=== PATIENT | male | born 1945 | race Caucasian/White ===

== ENCOUNTER 2018-02-12 08:37 | Inpatient (IN) | payer OTHER ==
[2018-02-12 09:45] LABS: ADD MAN DIFF? NO
[2018-02-12 09:52] LABS: BASOPHILS % 0.3 % (0.0-2.0); EOSINOPHILS # 0.1 10^3/ul (0.0-0.5); EOSINOPHILS % 1.7 % (0.0-7.0); HEMATOCRIT 29.6 % (42.0-52.0); HEMOGLOBIN 9.7 g/dl (14.0-18.0); LYMPHOCYTES # 1.6 10^3/ul (0.8-2.9); LYMPHOCYTES % 25.3 % (15.0-51.0); MEAN CORPUSCULAR HGB CONC 32.8 g/dl (32.0-37.0); MEAN CORPUSCULAR VOLUME 97.7 fl (82.0-101.0); MEAN PLATELET VOLUME 9.9 fl (7.4-10.4); MONOCYTE # 0.6 10^3/ul (0.3-0.9); MONOCYTES % 8.9 % (0.0-11.0); NEUTROPHIL # 4.1 10^3/ul (1.6-7.5); NEUTROPHILS % 63.6 % (39.0-77.0); PLATELET COUNT 395 10^3/UL (140-415); RED BLOOD COUNT 3.03 10^6/ul (4.70-6.10); RED CELL DISTRIBUTION WIDTH 12.5 % (11.5-14.5)
[2018-02-12 09:52] LABS: WHITE BLOOD COUNT 6.4 10^3/ul (4.8-10.8)
[2018-02-12] MEDS: PIPER-TAZO 3.375 GM IV (PMX) 100 ML IVPB ×2 (10:10→23:02)
[2018-02-12] MEDS: SODIUM CHLORIDE 0.9% 1L BAG IV* (10:11)
[2018-02-12 10:14] LABS: ANION GAP 9 (5-13); BLOOD UREA NITROGEN 25 mg/dl (7-20); C-REACTIVE PROTEIN 8.1 mg/dl (0.0-0.9); CALCIUM 8.7 mg/dl (8.4-10.2); CARBON DIOXIDE 25 mmol/L (21-31); CHLORIDE 106 mmol/L (97-110); CREATININE 1.89 mg/dl (0.61-1.24); Estimated GFR 35 mL/min (>60); GLUCOSE 159 mg/dl (70-220); POTASSIUM 4.2 mmol/L (3.5-5.1); SODIUM 140 mmol/L (135-144)
[2018-02-12] MEDS ORDERED: DOCUSATE SODIUM 100 MG CAP PO (10:30)
[2018-02-12] MEDS ORDERED: ONDANSETRON 4 MG INJ IV ×2 (10:30)
[2018-02-12] MEDS ORDERED: morphine 2 MG INJ IV (10:30)
[2018-02-12] MEDS ORDERED: VANCOMYCIN IV PER PHARMACY XX (10:30)
[2018-02-12] MEDS ORDERED: NACL 0.9% 3 ML SYG IV (10:30)
[2018-02-12] MEDS ORDERED: ACETAMINOPHEN 325 MG TAB PO ×2 (10:30)
[2018-02-12] MEDS ORDERED: HYDROCODONE/APAP (5/325) TAB PO (10:30)
[2018-02-12 10:55] LABS: INR 1.05; PROTIME 13.8 Sec (11.9-14.9); PT RATIO 1.1
[2018-02-12 10:56] LABS: PARTIAL THROMBOPLASTIN TIME 36.7 Sec (23.0-35.0)
[2018-02-12] MEDS: VANCOMYCIN 1 GM (PMX) 250 ML IVPB (10:58)
[2018-02-12] MEDS: INSULIN ASPART [NOVOLOG] 3 ML PEN SC ×3 (12:00→20:12)
[2018-02-12] MEDS: LOSARTAN 50 MG TAB GTB (12:05)
[2018-02-12] MEDS: FAMOTIDINE 20 MG TAB PO (12:05)
[2018-02-12] MEDS: SOD CHLORIDE 0.9% 1,000 ML IV ×2 (12:06→23:05)
[2018-02-12] MEDS: VANCOMYCIN 500 MG (PMX) 100 ML IVPB (14:16)
[2018-02-12] MEDS ORDERED: HEPARIN 5,000 UNIT/0.5 ML VIAL ×2 (14:18→22:53)
[2018-02-12] MEDS: HEPARIN 5,000 UNIT/1 ML VIAL SC ×2 (14:19→23:04)
[2018-02-12 14:27] LABS: LACTIC ACID 0.8 mmol/L (0.5-2.0)
[2018-02-12] MEDS ORDERED: morphine LIQ (10 MG/5 ML) CUP PO (18:00)
[2018-02-13] MEDS: ACCU-CHEK XX (02:00)
[2018-02-13] MEDS: HEPARIN 5,000 UNIT/1 ML VIAL SC ×3 (05:24→22:00)
[2018-02-13] MEDS: PIPER-TAZO 3.375 GM IV (PMX) 100 ML IVPB ×3 (05:24→21:54)
[2018-02-13 07:26] LABS: ADD MAN DIFF? NO
[2018-02-13 07:31] LABS: BASOPHILS % 0.2 % (0.0-2.0); EOSINOPHILS # 0.1 10^3/ul (0.0-0.5); HEMOGLOBIN 8.8 g/dl (14.0-18.0); LYMPHOCYTES # 1.2 10^3/ul (0.8-2.9); LYMPHOCYTES % 25.3 % (15.0-51.0); MEAN CORPUSCULAR HEMOGLOBIN 31.5 pg (29.0-33.0); MEAN CORPUSCULAR HGB CONC 32.6 g/dl (32.0-37.0); MEAN CORPUSCULAR VOLUME 96.8 fl (82.0-101.0); MONOCYTE # 0.5 10^3/ul (0.3-0.9); MONOCYTES % 9.9 % (0.0-11.0); NEUTROPHIL # 2.9 10^3/ul (1.6-7.5); NEUTROPHILS % 61.2 % (39.0-77.0); PLATELET COUNT 355 10^3/UL (140-415); RED BLOOD COUNT 2.79 10^6/ul (4.70-6.10); RED CELL DISTRIBUTION WIDTH 12.5 % (11.5-14.5)
[2018-02-13 07:31] LABS: WHITE BLOOD COUNT 4.7 10^3/ul (4.8-10.8)
[2018-02-13 07:53] LABS: HEMOGLOBIN A1C 6.2 % (0-5.9)
[2018-02-13] MEDS ORDERED: INSULIN ASPART [NOVOLOG] 3 ML PEN SC (08:00)
[2018-02-13 08:07] LABS: ALANINE AMINOTRANSFERASE 19 IU/L (13-69); ALBUMIN 2.6 g/dl (3.3-4.9); ALBUMIN/GLOBULIN RATIO 0.78; ALKALINE PHOSPHATASE 111 IU/L (42-121); ANION GAP 4 (5-13); ASPARTATE AMINO TRANSFERASE 16 IU/L (15-46); BILIRUBIN,INDIRECT 0.3 mg/dl (0-1.1); BILIRUBIN,TOTAL 0.3 mg/dl (0.2-1.3); BLOOD UREA NITROGEN 21 mg/dl (7-20); CALCIUM 8.8 mg/dl (8.4-10.2); CARBON DIOXIDE 27 mmol/L (21-31); CHLORIDE 109 mmol/L (97-110); CHOL/HDL RATIO 5.7 RATIO; CHOLESTEROL 127 mg/dl (100-200); CREATININE 1.62 mg/dl (0.61-1.24); Estimated GFR 42 mL/min (>60); GLUCOSE 130 mg/dl (70-220); HDL CHOLESTEROL 22 mg/dl (31-75); LDL CHOLESTEROL,CALCULATED 72 mg/dl; MAGNESIUM 1.6 mg/dl (1.7-2.5); PHOSPHORUS 3.3 mg/dl (2.5-4.9); POTASSIUM 5.3 mmol/L (3.5-5.1); SODIUM 140 mmol/L (135-144); TOTAL PROTEIN 5.9 g/dl (6.1-8.1); TRIGLYCERIDES 165 mg/dl (0-149)
[2018-02-13 08:23] LABS: T3 UPTAKE 42.3 % (23.5-40.5)
[2018-02-13] MEDS: Insulin NOVOLOG SS MODERATE Algorithm(NPO/TPN/ENTERAL FEEDS) SC ×3 (09:00→17:00)
[2018-02-13 09:28] LABS: FREE THYROXINE INDEX (Calc) 1.65 ug/ml (0.65-3.89); T4 (THYROXINE) 3.9 ug/dl (5.5-11.0)
[2018-02-13] MEDS: FAMOTIDINE 20 MG TAB PO (09:47)
[2018-02-13] MEDS: NA BICARBONATE 8.4% 50 ML SYG IV (09:47)
[2018-02-13] MEDS: LOSARTAN 50 MG TAB GTB (09:49)
[2018-02-13 10:04] LABS: IRON 42 ug/dl (35-150)
[2018-02-13 10:14] LABS: % IRON SATURATION 19 % SAT (22-52); TOTAL IRON BINDING CAPACITY 222 ug/dl (241-421)
[2018-02-13 11:12] LABS: FOLATE 13.6 ng/ml (2.8-20.0)
[2018-02-13] MEDS: CALCIUM GLUCONATE 10% 1 GM in DEXTROSE 5% 100 ML IVPB (11:40)
[2018-02-13] MEDS: VANCOMYCIN 750 MG in SOD CHLORIDE 0.9% 150 ML IVPB (11:41)
[2018-02-13] MEDS: INSULIN ASPART [NOVOLOG] 3 ML PEN SC (21:00)
[2018-02-13] MEDS ORDERED: GLUCAGON 1 MG INJ IM (21:30)
[2018-02-13] MEDS ORDERED: GLUCOSE GEL 15 GRAM TUBE BUCCAL (21:30)
[2018-02-13] MEDS ORDERED: GLUCOSE GEL 15 GRAM TUBE PO ×2 (21:30)
[2018-02-13] MEDS ORDERED: DEXTROSE 50% 50 ML SYRINGE IV ×2 (21:30)
[2018-02-13] MEDS ORDERED: HEPARIN 5,000 UNIT/0.5 ML VIAL (21:48)
[2018-02-13] MEDS: SOD FERRIC GLUC COMPLX 125 MG in SOD CHLORIDE 0.9% 100 ML IVPB (21:55)
[2018-02-14] MEDS: ACCU-CHEK XX (01:14)
[2018-02-14 05:28] LABS: ADD MAN DIFF? NO
[2018-02-14 05:35] LABS: BASOPHILS % 0.2 % (0.0-2.0); EOSINOPHILS % 0.6 % (0.0-7.0); LYMPHOCYTES # 1.1 10^3/ul (0.8-2.9); LYMPHOCYTES % 22.2 % (15.0-51.0); MEAN CORPUSCULAR HEMOGLOBIN 31.5 pg (29.0-33.0); MEAN CORPUSCULAR HGB CONC 32.1 g/dl (32.0-37.0); MEAN CORPUSCULAR VOLUME 97.9 fl (82.0-101.0); MEAN PLATELET VOLUME 9.8 fl (7.4-10.4); MONOCYTE # 0.5 10^3/ul (0.3-0.9); MONOCYTES % 9.4 % (0.0-11.0); NEUTROPHIL # 3.2 10^3/ul (1.6-7.5); NEUTROPHILS % 67.4 % (39.0-77.0); PLATELET COUNT 404 10^3/UL (140-415); RED BLOOD COUNT 2.86 10^6/ul (4.70-6.10); RED CELL DISTRIBUTION WIDTH 12.7 % (11.5-14.5)
[2018-02-14 05:35] LABS: WHITE BLOOD COUNT 4.8 10^3/ul (4.8-10.8)
[2018-02-14] MEDS ORDERED: HEPARIN 5,000 UNIT/0.5 ML VIAL ×3 (05:46→20:11)
[2018-02-14] MEDS: HEPARIN 5,000 UNIT/1 ML VIAL SC ×3 (05:52→21:20)
[2018-02-14] MEDS: PIPER-TAZO 3.375 GM IV (PMX) 100 ML IVPB ×3 (05:53→21:17)
[2018-02-14 06:15] LABS: ALANINE AMINOTRANSFERASE 10 IU/L (13-69); ALBUMIN 2.8 g/dl (3.3-4.9); ALBUMIN/GLOBULIN RATIO 0.75; ALKALINE PHOSPHATASE 88 IU/L (42-121); ANION GAP 10 (5-13); ASPARTATE AMINO TRANSFERASE 17 IU/L (15-46); BILIRUBIN,INDIRECT 0.3 mg/dl (0-1.1); BILIRUBIN,TOTAL 0.3 mg/dl (0.2-1.3); BLOOD UREA NITROGEN 24 mg/dl (7-20); CALCIUM 8.6 mg/dl (8.4-10.2); CARBON DIOXIDE 26 mmol/L (21-31); CHLORIDE 107 mmol/L (97-110); CREATININE 2.18 mg/dl (0.61-1.24); Estimated GFR 30 mL/min (>60); GLUCOSE 116 mg/dl (70-220); POTASSIUM 4.7 mmol/L (3.5-5.1); SODIUM 143 mmol/L (135-144); TOTAL PROTEIN 6.5 g/dl (6.1-8.1)
[2018-02-14 06:24] LABS: MAGNESIUM 1.5 mg/dl (1.7-2.5)
[2018-02-14 06:24] LABS: PHOSPHORUS 3.6 mg/dl (2.5-4.9)
[2018-02-14] MEDS: INSULIN ASPART [NOVOLOG] 3 ML PEN SC ×4 (08:07→21:00)
[2018-02-14] MEDS: LOSARTAN 50 MG TAB GTB (09:00)
[2018-02-14] MEDS: SODIUM HYPOCHLORITE (1/40) 1 APPLIC BTL IRR (09:03)
[2018-02-14] MEDS: FAMOTIDINE 20 MG TAB PO (09:03)
[2018-02-14 10:34] LABS: VANCOMYCIN,TROUGH 11.8 ug/ml (10.0-20.0)
[2018-02-14] MEDS: VANCOMYCIN 750 MG in SOD CHLORIDE 0.9% 150 ML IVPB (11:46)
[2018-02-14] MEDS: SOD FERRIC GLUC COMPLX 125 MG in SOD CHLORIDE 0.9% 100 ML IVPB (16:08)
[2018-02-14] MEDS: SOD CHLORIDE 0.9% 1,000 ML IV (21:30)
[2018-02-15] MEDS: ACCU-CHEK XX (01:03)
[2018-02-15] MEDS ORDERED: HEPARIN 5,000 UNIT/0.5 ML VIAL ×3 (04:32→20:51)
[2018-02-15] MEDS: PIPER-TAZO 3.375 GM IV (PMX) 100 ML IVPB ×3 (05:34→21:49)
[2018-02-15] MEDS: HEPARIN 5,000 UNIT/1 ML VIAL SC ×3 (05:38→21:53)
[2018-02-15 05:51] LABS: PHOSPHORUS 3.5 mg/dl (2.5-4.9)
[2018-02-15 05:51] LABS: MAGNESIUM 1.7 mg/dl (1.7-2.5)
[2018-02-15 05:53] LABS: ALANINE AMINOTRANSFERASE 16 IU/L (13-69); ALBUMIN 2.8 g/dl (3.3-4.9); ALKALINE PHOSPHATASE 72 IU/L (42-121); ANION GAP 7 (5-13); ASPARTATE AMINO TRANSFERASE 17 IU/L (15-46); BILIRUBIN,INDIRECT 0.3 mg/dl (0-1.1); BILIRUBIN,TOTAL 0.3 mg/dl (0.2-1.3); BLOOD UREA NITROGEN 24 mg/dl (7-20); CALCIUM 8.6 mg/dl (8.4-10.2); CARBON DIOXIDE 27 mmol/L (21-31); CHLORIDE 106 mmol/L (97-110); CREATININE 2.22 mg/dl (0.61-1.24); Estimated GFR 29 mL/min (>60); GLUCOSE 90 mg/dl (70-220); POTASSIUM 4.1 mmol/L (3.5-5.1); SODIUM 140 mmol/L (135-144); TOTAL PROTEIN 6.3 g/dl (6.1-8.1)
[2018-02-15] MEDS: SOD CHLORIDE 0.9% 1,000 ML IV ×3 (07:30→16:45)
[2018-02-15] MEDS: INSULIN ASPART [NOVOLOG] 3 ML PEN SC ×4 (07:55→20:55)
[2018-02-15] MEDS: LOSARTAN 50 MG TAB GTB (08:00)
[2018-02-15] MEDS: FAMOTIDINE 20 MG TAB PO (08:00)
[2018-02-15] MEDS: MAGNESIUM OXIDE 400 MG TAB PO ×2 (08:00→20:54)
[2018-02-15] MEDS: VANCOMYCIN 750 MG in SOD CHLORIDE 0.9% 150 ML IVPB (11:05)
[2018-02-15] MEDS: SODIUM HYPOCHLORITE (1/40) 1 APPLIC BTL IRR ×2 (13:10)
[2018-02-15] MEDS: SOD FERRIC GLUC COMPLX 125 MG in SOD CHLORIDE 0.9% 100 ML IVPB (17:09)
[2018-02-16] MEDS: INSULIN ASPART [NOVOLOG] 3 ML PEN SC ×6 (01:00→21:00)
[2018-02-16] MEDS: ACCU-CHEK XX (02:00)
[2018-02-16] MEDS: SOD CHLORIDE 0.9% 1,000 ML IV ×3 (03:10→16:04)
[2018-02-16 05:20] LABS: WHITE BLOOD COUNT 3.9 10^3/ul (4.8-10.8)
[2018-02-16 05:20] LABS: ADD MAN DIFF? NO; BASOPHILS % 0.5 % (0.0-2.0); EOSINOPHILS # 0.2 10^3/ul (0.0-0.5); EOSINOPHILS % 5.6 % (0.0-7.0); HEMATOCRIT 25.9 % (42.0-52.0); HEMOGLOBIN 8.6 g/dl (14.0-18.0); LYMPHOCYTES # 1.2 10^3/ul (0.8-2.9); LYMPHOCYTES % 30.8 % (15.0-51.0); MEAN CORPUSCULAR HGB CONC 33.2 g/dl (32.0-37.0); MEAN CORPUSCULAR VOLUME 96.3 fl (82.0-101.0); MEAN PLATELET VOLUME 9.5 fl (7.4-10.4); MONOCYTE # 0.5 10^3/ul (0.3-0.9); MONOCYTES % 11.7 % (0.0-11.0); NEUTROPHILS % 51.1 % (39.0-77.0); PLATELET COUNT 302 10^3/UL (140-415); RED BLOOD COUNT 2.69 10^6/ul (4.70-6.10); RED CELL DISTRIBUTION WIDTH 12.8 % (11.5-14.5)
[2018-02-16] MEDS: HEPARIN 5,000 UNIT/1 ML VIAL SC ×3 (05:31→22:09)
[2018-02-16] MEDS: PIPER-TAZO 3.375 GM IV (PMX) 100 ML IVPB ×3 (05:46→22:08)
[2018-02-16 06:03] LABS: ALANINE AMINOTRANSFERASE 9 IU/L (13-69); ALBUMIN 2.7 g/dl (3.3-4.9); ALBUMIN/GLOBULIN RATIO 0.79; ALKALINE PHOSPHATASE 78 IU/L (42-121); ANION GAP 7 (5-13); ASPARTATE AMINO TRANSFERASE 22 IU/L (15-46); BILIRUBIN,INDIRECT 0.3 mg/dl (0-1.1); BILIRUBIN,TOTAL 0.3 mg/dl (0.2-1.3); BLOOD UREA NITROGEN 21 mg/dl (7-20); CALCIUM 8.3 mg/dl (8.4-10.2); CARBON DIOXIDE 26 mmol/L (21-31); CHLORIDE 110 mmol/L (97-110); CREATININE 1.82 mg/dl (0.61-1.24); Estimated GFR 37 mL/min (>60); GLUCOSE 99 mg/dl (70-220); POTASSIUM 4.2 mmol/L (3.5-5.1); SODIUM 143 mmol/L (135-144); TOTAL PROTEIN 6.1 g/dl (6.1-8.1)
[2018-02-16 06:08] LABS: MAGNESIUM 1.7 mg/dl (1.7-2.5)
[2018-02-16 06:08] LABS: PHOSPHORUS 3.2 mg/dl (2.5-4.9)
[2018-02-16] MEDS ORDERED: MIDAZOLAM 1 MG/ML 2 ML INJ (06:58)
[2018-02-16] MEDS ORDERED: FENTAnyl 50 MCG/ML VIAL (06:58)
[2018-02-16] MEDS ORDERED: SOD CHLORIDE 0.9% 500 ML (06:58)
[2018-02-16] MEDS ORDERED: LIDOCAINE 2% (MDV) 20 ML INJ (06:58)
[2018-02-16] MEDS ORDERED: IODIXANOL LOCM 50 ML BTL (08:02)
[2018-02-16] MEDS: FAMOTIDINE 20 MG TAB PO (10:11)
[2018-02-16] MEDS: MAGNESIUM OXIDE 400 MG TAB PO ×2 (10:11→21:05)
[2018-02-16] MEDS: SODIUM HYPOCHLORITE (1/40) 1 APPLIC BTL IRR (10:13)
[2018-02-16 11:32] LABS: VANCOMYCIN,TROUGH 12.2 ug/ml (10.0-20.0)
[2018-02-16] MEDS: VANCOMYCIN 750 MG in SOD CHLORIDE 0.9% 150 ML IVPB (12:33)
[2018-02-17] MEDS: INSULIN ASPART [NOVOLOG] 3 ML PEN SC ×6 (01:00→21:00)
[2018-02-17] MEDS: SOD CHLORIDE 0.9% 1,000 ML IV ×3 (01:30→10:22)
[2018-02-17] MEDS: ACCU-CHEK XX (02:00)
[2018-02-17] MEDS: PIPER-TAZO 3.375 GM IV (PMX) 100 ML IVPB (05:50)
[2018-02-17] MEDS: HEPARIN 5,000 UNIT/1 ML VIAL SC ×3 (06:00→21:02)
[2018-02-17] MEDS ORDERED: SEVOFLURANE 15 MIN (07:00)
[2018-02-17 07:20] LABS: ADD MAN DIFF? NO
[2018-02-17 07:24] LABS: WHITE BLOOD COUNT 3.8 10^3/ul (4.8-10.8)
[2018-02-17 07:24] LABS: BASOPHILS % 0.3 % (0.0-2.0); EOSINOPHILS # 0.2 10^3/ul (0.0-0.5); EOSINOPHILS % 6.4 % (0.0-7.0); HEMATOCRIT 26.8 % (42.0-52.0); HEMOGLOBIN 8.7 g/dl (14.0-18.0); LYMPHOCYTES # 1.2 10^3/ul (0.8-2.9); LYMPHOCYTES % 31.4 % (15.0-51.0); MEAN CORPUSCULAR HEMOGLOBIN 31.5 pg (29.0-33.0); MEAN CORPUSCULAR HGB CONC 32.5 g/dl (32.0-37.0); MEAN CORPUSCULAR VOLUME 97.1 fl (82.0-101.0); MEAN PLATELET VOLUME 9.4 fl (7.4-10.4); MONOCYTE # 0.5 10^3/ul (0.3-0.9); MONOCYTES % 12.8 % (0.0-11.0); NEUTROPHIL # 1.8 10^3/ul (1.6-7.5); NEUTROPHILS % 48.6 % (39.0-77.0); PLATELET COUNT 273 10^3/UL (140-415); RED BLOOD COUNT 2.76 10^6/ul (4.70-6.10); RED CELL DISTRIBUTION WIDTH 12.6 % (11.5-14.5)
[2018-02-17 07:56] LABS: ANION GAP 8 (5-13); BLOOD UREA NITROGEN 17 mg/dl (7-20); CALCIUM 8.4 mg/dl (8.4-10.2); CARBON DIOXIDE 27 mmol/L (21-31); CHLORIDE 106 mmol/L (97-110); CREATININE 1.66 mg/dl (0.61-1.24); Estimated GFR 41 mL/min (>60); GLUCOSE 102 mg/dl (70-220); POTASSIUM 4.1 mmol/L (3.5-5.1); SODIUM 141 mmol/L (135-144)
[2018-02-17 07:57] LABS: PHOSPHORUS 2.8 mg/dl (2.5-4.9)
[2018-02-17 07:57] LABS: MAGNESIUM 1.8 mg/dl (1.7-2.5)
[2018-02-17] MEDS: MAGNESIUM OXIDE 400 MG TAB PO ×2 (08:28→21:00)
[2018-02-17] MEDS: FAMOTIDINE 20 MG TAB PO (08:28)
[2018-02-17] MEDS: SODIUM HYPOCHLORITE (1/40) 1 APPLIC BTL IRR (08:29)
[2018-02-17] MEDS: VANCOMYCIN 750 MG in SOD CHLORIDE 0.9% 150 ML IVPB (10:19)
[2018-02-17] MEDS ORDERED: FENTAnyl 50 MCG/ML VIAL (16:48)
[2018-02-17] MEDS ORDERED: MIDAZOLAM 1 MG/ML 2 ML INJ (16:49)
[2018-02-17] MEDS ORDERED: METOCLOPRAMIDE 10 MG INJ (16:59)
[2018-02-17] MEDS ORDERED: LIDOCAINE 2% (SDV) 5 ML INJ (16:59)
[2018-02-17] MEDS ORDERED: ETOMIDATE 20 MG INJ (16:59)
[2018-02-17] MEDS ORDERED: ROPIVACAINE 0.5 % 30 ML VIAL (17:28)
[2018-02-17] MEDS ORDERED: ONDANSETRON 4 MG INJ IV (17:30)
[2018-02-17] MEDS ORDERED: LABETALOL HCL 20MG INJ IV (17:30)
[2018-02-17] MEDS ORDERED: HYDROmorphONE 1 MG/5 ML IV SYRINGE IV ×2 (17:30)
[2018-02-17] MEDS ORDERED: IPRATROPIUM (NEB) 0.5 MG/2.5 ML AMP HHN (17:30)
[2018-02-17] MEDS ORDERED: LEVALBUTEROL (NEB) 1.25 MG/0.5 ML AMP HHN (17:30)
[2018-02-17] MEDS ORDERED: DIPHENHYDRAMINE 50 MG INJ IV (17:30)
[2018-02-17] MEDS ORDERED: FENTAnyl 50 MCG/ML VIAL IV ×2 (17:30)
[2018-02-17] MEDS: POLYMYXIN/BACITRACIN 1L IRRIG IRR (18:15)
[2018-02-17] MEDS: hydrALAzine 20 MG INJ IV (19:15)
[2018-02-18] MEDS: SOD CHLORIDE 0.9% 1,000 ML IV ×4 (01:49→22:40)
[2018-02-18] MEDS: ACCU-CHEK XX (01:50)
[2018-02-18] MEDS: HEPARIN 5,000 UNIT/1 ML VIAL SC ×3 (05:59→22:42)
[2018-02-18 06:53] LABS: ADD MAN DIFF? NO
[2018-02-18 07:03] LABS: BASOPHILS % 0.2 % (0.0-2.0); EOSINOPHILS # 0.2 10^3/ul (0.0-0.5); EOSINOPHILS % 4.2 % (0.0-7.0); HEMATOCRIT 25.2 % (42.0-52.0); HEMOGLOBIN 8.3 g/dl (14.0-18.0); LYMPHOCYTES % 19.1 % (15.0-51.0); MEAN CORPUSCULAR HEMOGLOBIN 31.8 pg (29.0-33.0); MEAN CORPUSCULAR HGB CONC 32.9 g/dl (32.0-37.0); MEAN CORPUSCULAR VOLUME 96.6 fl (82.0-101.0); MEAN PLATELET VOLUME 9.7 fl (7.4-10.4); MONOCYTE # 0.6 10^3/ul (0.3-0.9); MONOCYTES % 10.1 % (0.0-11.0); NEUTROPHIL # 3.6 10^3/ul (1.6-7.5); NEUTROPHILS % 65.8 % (39.0-77.0); PLATELET COUNT 272 10^3/UL (140-415); RED BLOOD COUNT 2.61 10^6/ul (4.70-6.10); RED CELL DISTRIBUTION WIDTH 12.6 % (11.5-14.5)
[2018-02-18 07:03] LABS: WHITE BLOOD COUNT 5.4 10^3/ul (4.8-10.8)
[2018-02-18 07:49] LABS: PHOSPHORUS 2.5 mg/dl (2.5-4.9)
[2018-02-18 07:49] LABS: MAGNESIUM 1.7 mg/dl (1.7-2.5)
[2018-02-18 07:50] LABS: ANION GAP 8 (5-13); BLOOD UREA NITROGEN 16 mg/dl (7-20); CALCIUM 8.1 mg/dl (8.4-10.2); CARBON DIOXIDE 26 mmol/L (21-31); CHLORIDE 106 mmol/L (97-110); CREATININE 1.38 mg/dl (0.61-1.24); Estimated GFR 51 mL/min (>60); GLUCOSE 120 mg/dl (70-220); POTASSIUM 3.7 mmol/L (3.5-5.1); SODIUM 140 mmol/L (135-144)
[2018-02-18] MEDS: INSULIN ASPART [NOVOLOG] 3 ML PEN SC ×4 (07:52→20:38)
[2018-02-18] MEDS: FAMOTIDINE 20 MG TAB PO (08:26)
[2018-02-18] MEDS: MAGNESIUM OXIDE 400 MG TAB PO ×2 (08:26→20:37)
[2018-02-18] MEDS: SODIUM HYPOCHLORITE (1/40) 1 APPLIC BTL IRR (08:27)
[2018-02-18] MEDS: VANCOMYCIN 1 GM 250 ML IVPB (10:17)
[2018-02-19] MEDS: ACCU-CHEK XX (00:22)
[2018-02-19] MEDS: SOD CHLORIDE 0.9% 1,000 ML IV (05:33)
[2018-02-19] MEDS: HEPARIN 5,000 UNIT/1 ML VIAL SC ×2 (05:34→14:27)
[2018-02-19 06:45] LABS: ADD MAN DIFF? NO
[2018-02-19 07:01] LABS: BASOPHILS % 0.2 % (0.0-2.0); EOSINOPHILS # 0.2 10^3/ul (0.0-0.5); EOSINOPHILS % 4.8 % (0.0-7.0); HEMATOCRIT 23.9 % (42.0-52.0); HEMOGLOBIN 8.1 g/dl (14.0-18.0); LYMPHOCYTES # 1.3 10^3/ul (0.8-2.9); LYMPHOCYTES % 29.1 % (15.0-51.0); MEAN CORPUSCULAR HEMOGLOBIN 32.4 pg (29.0-33.0); MEAN CORPUSCULAR HGB CONC 33.9 g/dl (32.0-37.0); MEAN CORPUSCULAR VOLUME 95.6 fl (82.0-101.0); MEAN PLATELET VOLUME 9.9 fl (7.4-10.4); MONOCYTE # 0.5 10^3/ul (0.3-0.9); MONOCYTES % 10.9 % (0.0-11.0); NEUTROPHIL # 2.4 10^3/ul (1.6-7.5); NEUTROPHILS % 54.5 % (39.0-77.0); PLATELET COUNT 271 10^3/UL (140-415); RED CELL DISTRIBUTION WIDTH 12.7 % (11.5-14.5)
[2018-02-19 07:01] LABS: WHITE BLOOD COUNT 4.4 10^3/ul (4.8-10.8)
[2018-02-19 07:27] LABS: ANION GAP 7 (5-13); BLOOD UREA NITROGEN 15 mg/dl (7-20); CALCIUM 8.1 mg/dl (8.4-10.2); CARBON DIOXIDE 24 mmol/L (21-31); CHLORIDE 111 mmol/L (97-110); CREATININE 1.33 mg/dl (0.61-1.24); Estimated GFR 53 mL/min (>60); GLUCOSE 96 mg/dl (70-220); MAGNESIUM 1.9 mg/dl (1.7-2.5); POTASSIUM 3.6 mmol/L (3.5-5.1); SODIUM 142 mmol/L (135-144)
[2018-02-19 07:27] LABS: PHOSPHORUS 2.4 mg/dl (2.5-4.9)
[2018-02-19] MEDS: INSULIN ASPART [NOVOLOG] 3 ML PEN SC ×2 (08:00→12:00)
[2018-02-19] MEDS: SODIUM HYPOCHLORITE (1/40) 1 APPLIC BTL IRR (09:00)
[2018-02-19] MEDS: MAGNESIUM OXIDE 400 MG TAB PO (09:03)
[2018-02-19] MEDS: FAMOTIDINE 20 MG TAB PO (09:03)
[2018-02-19] MEDS: LIDOCAINE 1% (MPF) 5 ML VIAL SC (11:45)
[2018-02-19] MEDS: VANCOMYCIN 1.25 GM in SOD CHLORIDE 0.9% 250 ML IVPB (12:54)
== END 2018-02-19 17:00 | disposition home health service (06) | DRG 617 ==
LOC: E/R 08:37 → PP2 10:23
PROC: 0Y6N0Z9 Detachment at Left Foot, Partial 1st Ray, Open Approach (ICD-10-PCS; principal; 2018-02-16 07:05)
PROC: 0Y6N0ZB Detachment at Left Foot, Partial 2nd Ray, Open Approach (ICD-10-PCS; 2018-02-16 07:05)
PROC: 0Y6N0ZC Detachment at Left Foot, Partial 3rd Ray, Open Approach (ICD-10-PCS; 2018-02-16 07:05)
PROC: 0Y6N0ZD Detachment at Left Foot, Partial 4th Ray, Open Approach (ICD-10-PCS; 2018-02-16 07:05)
PROC: 0Y6N0ZF Detachment at Left Foot, Partial 5th Ray, Open Approach (ICD-10-PCS; 2018-02-16 07:05)
PROC: B4101ZZ Fluoroscopy of Abdominal Aorta using Low Osmolar Contrast (ICD-10-PCS; 2018-02-16 07:05)
PROC: B41J1ZZ Fluoroscopy of Other Lower Arteries using Low Osmolar Contrast (ICD-10-PCS; 2018-02-16 07:05)
PROC: 02H633Z Insertion of Infusion Device into Right Atrium, Percutaneous Approach (ICD-10-PCS; 2018-02-16 07:05)
DX: E10.621 Type 1 diabetes mellitus with foot ulcer (principal); M00.9 Pyogenic arthritis, unspecified; M86.172 Other acute osteomyelitis, left ankle and foot; L02.612 Cutaneous abscess of left foot; E10.69 Type 1 diabetes mellitus with other specified complication; E10.51 Type 1 diabetes mellitus with diabetic peripheral angiopathy without gangrene; N17.9 Acute kidney failure, unspecified; I12.9 Hypertensive chronic kidney disease with stage 1 through stage 4 chronic kidney disease, or unspecified chronic kidney disease; E10.22 Type 1 diabetes mellitus with diabetic chronic kidney disease; N18.3 Chronic kidney disease, stage 3 (moderate); E78.5 Hyperlipidemia, unspecified; E10.42 Type 1 diabetes mellitus with diabetic polyneuropathy; Z89.422 Acquired absence of other left toe(s)
CPT/HCPCS: 36415; 36569; 71045; 73630-LT; 73718; 75630; 75710; 76775; 76937; 80048; 80053; 80061; 80202; 82607; 82728; 82746; 82962; 83036; 83540; 83605; 83735; 84100; 84436; 84479; 85025; 85610; 85651; 85730; 86140; 87040; 87070; 87086; 88307; 93005; 93306; 93922; 93971; 96374; 97161; 99285-25